=== PATIENT | female | born 1975 | race African-American/Black ===

== ENCOUNTER 2023-09-08 20:55 | Emergency (ER) | payer OTHER ==
[~2023-09-08] VITALS: Ht 170.2 cm; Wt 81.6 kg
[2023-09-08 21:53] VITALS: BP 124/83; TEMP 98.1; O2SAT 98
[2023-09-08] MEDS ORDERED: CYCL5TAB PO (23:06)
[2023-09-08] MEDS ORDERED: ACET-2605 PO (23:06)
[2023-09-08] MEDS ORDERED: IBUP-1955 PO (23:06)
== END 2023-09-08 23:19 | disposition home or self-care (01) ==
LOC: ER 21:01
DX: M54.2 Cervicalgia (principal); M54.59 Other low back pain; R51.9 Headache, unspecified; Z88.0 Allergy status to penicillin; Z88.1 Allergy status to other antibiotic agents; V43.62XA Car passenger injured in collision with other type car in traffic accident, initial encounter; Y93.89 Activity, other specified; Y92.481 Parking lot as the place of occurrence of the external cause; Y99.8 Other external cause status